=== PATIENT | male | born 1965 | race Two or more races ===

== ENCOUNTER 2018-03-28 17:33 | Inpatient (IN) | payer BC ==
[~2018-03-28] VITALS: Ht 165.1 cm; Wt 107.1 kg
[2018-03-28 22:55] VITALS: Ht 165.1 cm; Wt 107.1 kg
--- NOTE | 2018-03-28 22:55 | NUR ---
ADMITTED 52 YEARS OLD MALE FROM [facility] WITH C/O LEFT FACIAL VESICULAR RASH AROUND LEFT FOREHEAD , LEFT EYELID LEFT EYE ( SHINGLES ) UNDER DR Cedrick ANN . SKIN ASSESSMENT PER PROTOCOL . PATIENT ALERT AND ORIENTED X4 .V/S STABLE .ROUTINE ADMISSION CARE RENDERED .FALL PRECAUTION IN PLACE . CALL LIGHTS REMAIN WITHIN REACH. PLACED ON ISOLATION FOR AIRBORNE . CALLED DR. ANN AND MADE AWARE OF DIRECT ADMISSION . NEW ORDER RECEIVED AND CARRIED OUT . CONTINUE WITH PLAN OF CARE .WILL CONTINUE TO TO MONITOR .
[2018-03-28 23:53] VITALS: BP 137/95; PULSE 90; RESP 18
[2018-03-29] MEDS ORDERED: ONDANSETRON 4 MG TAB PO PRN (01:00)
[2018-03-29] MEDS ORDERED: CYANOCOBALAMIN 1000 MCG INJ IM SCH (01:00)
[2018-03-29] MEDS ORDERED: ACETAMINOPHEN 500 MG TAB PO PRN (01:00)
[2018-03-29] MEDS ORDERED: IBUPROFEN 600 MG TAB PO PRN (01:00)
[2018-03-29] MEDS ORDERED: traZODone 50 MG TAB PO PRN (01:00)
[2018-03-29] MEDS ORDERED: ARTIFICIAL TEARS 15 ML OPH BOTH EYES PRN (01:00)
[2018-03-29] MEDS: CEFAZOLIN 1 GM/50 ML (PMX) 50 ML IVPB SCH ×2 (01:52→11:43)
[2018-03-29] MEDS: SOD CHLORIDE 0.9% 1,000 ML IV SCH (01:52)
[2018-03-29 02:35] VITALS: BP 149/101; PULSE 83; RESP 18
[2018-03-29] MEDS: ACYCLOVIR 750 MG in SOD CHLORIDE 0.9% 150 ML IVPB SCH ×3 (02:54→17:54)
[2018-03-29 08:00] VITALS: BP 137/92; PULSE 93; RESP 19
[2018-03-29] MEDS: ENOXAPARIN 40 MG/0.4 ML SYG SC SCH (09:00)
[2018-03-29] MEDS: FOLIC ACID 1 MG TAB PO SCH (09:09)
[2018-03-29] MEDS: ERYTHROMYCIN 1 GM OPH OINT BOTH EYES SCH ×2 (09:10→21:00)
[2018-03-29] MEDS: AMLODIPINE 5 MG TAB PO SCH (09:11)
[2018-03-29] MEDS: LOSARTAN 50 MG TAB PO SCH (09:11)
[2018-03-29 14:05] VITALS: BP 130/89; PULSE 99; RESP 18
--- NOTE | 2018-03-29 14:18 | CONS ---
DATE OF ADMISSION: 03/28/2018 DATE OF CONSULTATION: 03/29/2018 TYPE OF CONSULTATION: Infectious disease. REASON FOR CONSULTATION: Antibiotic management. HISTORY OF PRESENT ILLNESS: Mr. Morris is a 52-year-old male with numerous problems, transferred f [facility] and is being seen for antibiotic management of herpes zoster. He is a 52-year-old male with HIV confirmed with Western Blot diagnosed a week ago. He developed pain in his left forehead on 03/24/2018. This progressed to some skin lesions and swelling of his left eye over the past 3 days. It is difficult for him to open his left eye. He has some photophobia without hea dache without change of vision in the left eye where his lids are held open without nausea, vomiting, fever or sweats. [place] came from [place]. He had chickenpox 40 years ago. He denies being v accinated for shingles. He does not know how he contracted HIV. Denies sexuality with males or IV d rug abuse. His has been tested and is negative. The patient was started on IV acyclovir and st arted on erythromycin ophthalmic ointment. PAST MEDICAL HISTORY: Operations as outlined. FAMILY HISTORY: Noncontributory. SOCIAL HISTORY: He does not smoke, drink or abuse drugs. ALLERGIES: NONE TO PENICILLIN, SULFA OR FOODS. MEDICATIONS: Per chart. REVIEW OF SYSTEMS: Noncontributory. PHYSICAL EXAMINATION: GENERAL: The patient is a well-developed, well-nourished male, awake, responsive, in no acute distre ss. VITAL SIGNS: Stable. HEENT: He has lesions in the vertical cluster on the left forehead with vesicle on left eyelid and some vesicles with peripheral yellow crusting. His left eye is edematous, erythematous. He has some drainage from the eye, but it does not appear to be purulent. ENT: Within normal limits. NECK: Supple. LYMPH NODES: None palpable. CHEST: Decreased breath sounds at the bases. HEART: Without murmur or gallop. ABDOMEN: Soft, nontender without organosplenomegaly or masses. EXTREMITIES: Without cyanosis, clubbing or edema. RECTAL AND GENITAL: Deferred. NEUROLOGIC: No focal neurological abnormality. IMPRESSION AND PLAN: We are dealing with a 52-year-old male newly diagnosed with human immunodeficie ncy virus who has dermatomal zoster involving the eye with left 6th dermatome without signs of promin ent involvement with diffuse swelling of the left eyelid and drainage. He has some new lesions on th e tip of the nose. The patient was started on IV acyclovir and also on antibiotics, cefazolin for po ssible bacterial superinfection. The patient was seen by infectious disease at [facility] and then t ransferred over to [facility] for insurance purposes. His white count was 3.7, H and H 15.5 and 45.7, platelet count of 58,000. BUN and creatinine was less than 5/0.79. He had hepatitis B an d C serologies drawn but they are not yet available. He has a history of B12 deficiency and has a hi story of hypertension on losartan and amlodipine. We will continue him on acyclovir and cefazolin. I will dictate my findings to I believe the hospitalist. Dictated By: ARYA CHING MD, JD/ИРИНА Conf#: [id number] DID#: [id number] CC: MORIAH ANN MD;*EndCC*
[2018-03-29] MEDS ORDERED: AZITHROMYCIN 600 MG TAB PO SCH (16:30)
--- NOTE | 2018-03-29 16:31 | QN ---
Documentation Comment SEEN AND EXAMINED NAVEED AGUILAR MD Mar 29, 2018 16:31
[2018-03-29] MEDS: TRIMETHOPRIM/SULFAMETHOX (DS) TAB PO SCH (17:53)
--- NOTE | 2018-03-29 18:14 | HP ---
DATE OF ADMISSION: 03/28/2018 REASON FOR ADMISSION: Transfer from [facility] secondary to shingles zoster ophthalmicus. HISTORY OF PRESENT ILLNESS: This is a 52-year-old male who was recently diagnosed with HIV by Becki navarrete a week ago and hypertension who presented to the [facility] on the due to a rash that appeared on the left eye for 1 day. According to the patient and the , the patient had not iced a rash on the left eye for the last 1 to 2 days. On arrival to [facility], the patient was noted to have diffuse erythematous vesicular rashes at the left V1 distribution. Ophthalmology was consulted. Per their note, there was no evidence of ARN, PORN, uveitis or scleritis. No gross s igns of keratitis. The patient was treated with IV acyclovir NS, also was started on IV cefazolin. Eye drainage was cultured for bacteria and also was started on erythromycin drops. The patient was a lso newly-diagnosed with HIV, viral load was pending. The patient was kept in isolation, was transfe rred here due to insurance reasons. Currently, the patient said that he is feeling a lot better. Th e swelling of the left eye is much improved. He could see from his left eye now. The lesions have i mproved. He came from around 8 years ago. He had chickenpox 40 years ago. He denies being vaccinat ed for shingles. He does not know how he contracted HIV. He denies sexuality with males or IV drug abuse. On arrival to ED here, vital signs showed blood pressure 130/89, afebrile, pulse 99, respirat ions 19. White count 5.2, hemoglobin 15.7, platelet count was 72. PAST MEDICAL HISTORY: 1. Recently-diagnosed HIV. 2. Hypertension. ALLERGIES: NO ALLERGIES TO PENICILLIN OR SULFA DRUGS. SOCIAL HISTORY: Denies any history of smoking or alcohol. 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 Apparently, he feels that he got HIV through a needle. FAMILY HISTORY: Noncontributory. REVIEW OF SYSTEMS: The patient complained of pain around the left eye which has much improved. Claudio es any chest pain, any shortness of breath, any headache, any blurry vision. Denies any abdominal pa in, nausea, vomiting, diarrhea. Denies any hematemesis, any melena, any bright red blood per rectum. MEDICATIONS: Taking at home are losartan 100. The patient also had a left ear TM perforation 30 yea rs ago. PHYSICAL EXAMINATION: GENERAL: Well-developed, well-nourished male who appears in no acute distress. HEENT: Lesion in the vertical cluster on the left forehead, vesicle on the left eyelid, some vesicle s with some crusting. NECK: Supple. No JVD. HEART: Regular rate and rhythm. LUNGS: Clear to auscultation bilaterally. ABDOMEN: Soft, nontender, nondistended. EXTREMITIES: No clubbing, cyanosis, or edema. NEUROLOGIC: Nonfocal. DIAGNOSTIC DATA: He had significant thrombocytopenia, platelet count of 72. ASSESSMENT AND PLAN: This is a 52-year-old male who presented with: 1. Shingles zoster ophthalmicus. The patient has an extensive workup at [facility]. Ophth almology was consulted. Per their note, no evidence of ARN, PORN, uveitis or scleritis, currently on acyclovir and also on IV Ancef, artificial tears and erythromycin ointment. 2. Human immunodeficiency virus, newly diagnosed. The patient unaware of how he contracted HIV. Th e patient and do not want other family members including sons to know pending CD4 and viral load . 3. Thrombocytopenia. It could be secondary to human immunodeficiency virus infection. Would evalua te for other causes. 4. History of folate deficiency. 5. B12 deficiency. 6. Hypertension. PLAN: At this period of time, the patient is admitted to Med/Surg. We will continue the patient on IV acyclovir and cefazolin. We will get the CD4 count and viral load from [facility]. The patient will likely need HAART therapy. ID has been consulted. Rest of the treatment will depend on the patient's hospitalization course. Dictated By: NAVEED JAING/ИРИНА Conf#: [id number] DID#: [id number] CC: MORIAH ANN MD;*EndCC*
--- NOTE | 2018-03-29 18:34 | NUR ---
EOSS: Pt vitals stable throughout shift. Pt reported desire to be discharged. Dr. Resendiz stated patient is pending discharge tomorrow if CD4 and viral load are sent to [facility] from [facility]. Consent for exchange of personal information signed by patient and sent to [facility]. Patient is also waiting for case management consult to see if new HIV medication will be covered by insurance, prior to clearance for D/C. Patient was made aware of the reason for delay in discharge. Pt reports that rash on face is improved from days prior. IV abx switched to oral during shift. Pt denies pain or nausea. Patient ambulates without assistance to bathroom. is at bedside. Pt requests that ONLY is to be allowed to receive information regarding health care. Other family members are not allowed to receive any information regarding personal health information. Pt denies having further needs at this time. Call light within reach.
[2018-03-29 19:40] VITALS: BP 130/84; PULSE 116; RESP 18
[2018-03-30] MEDS: SOD CHLORIDE 0.9% 1,000 ML IV SCH ×2 (01:00→09:46)
[2018-03-30 02:47] VITALS: BP 134/90; PULSE 77; RESP 20
[2018-03-30] MEDS: ACYCLOVIR 750 MG in SOD CHLORIDE 0.9% 150 ML IVPB SCH ×2 (03:29→11:11)
--- NOTE | 2018-03-30 05:20 | NUR ---
End of Shift RN Note: Pt alert and oriented x4. No signs of acute distress noted. Pt denied pain through the night. Refused ophthalmic medication, stating he would take it in the AM. Pt vitals remained at baseline through the night. Pt showered. Airborne precautions continued. Will continue to monitor.
[2018-03-30 07:15] VITALS: BP 134/92; PULSE 77; RESP 16
[2018-03-30] MEDS: LOSARTAN 50 MG TAB PO SCH (08:18)
[2018-03-30] MEDS: TRIMETHOPRIM/SULFAMETHOX (DS) TAB PO SCH (08:18)
[2018-03-30] MEDS: ERYTHROMYCIN 1 GM OPH OINT BOTH EYES SCH (08:18)
[2018-03-30] MEDS: AMLODIPINE 5 MG TAB PO SCH (08:18)
[2018-03-30] MEDS: FOLIC ACID 1 MG TAB PO SCH (08:18)
[2018-03-30] MEDS: ENOXAPARIN 40 MG/0.4 ML SYG SC SCH (09:00)
[2018-03-30] MEDS ORDERED: FLUCONAZOLE 200 MG TAB PO SCH (09:00)
--- NOTE | 2018-03-30 10:30 | NUR ---
SS Note: Consult The patient is a 52-year-old male who was recently diagnosed with HIV and hypertension admitted due to facial shingles. SW met with pt and his spouse, Casandra Street , to provide support, complete psychosocial assessment, and link pt to appropriate resources as needed. Pt provided consent for spouse to present during visit. Pt is and has two sons ages 21 and 13. Pt verbally appointed his spouse as surrogate decision maker/spokesperson. Pt confirmed address on facesheet and stated he lives with his family. 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 Pt is independent with all ADL's and does not require DME. Pt has [facility] insurance and PCP is Zoila Loco at [facility]. Pt stated he was dx with HIV approximately 2 weeks ago. Spouse is the only person who knows and does not want his children to find out. Per pt, he was dx by PCP and has appointment with Infectious Specialist on 04/23/18. Pt not on any HIV meds at this time. SW introduced self and the role of the group social worker. SW provided support and reassurance. SW provided HIV E-sheets for additional education. SW also discussed and provided HIV/AIDS and counseling resources. SW remains available for f/u as needed.
--- NOTE | 2018-03-30 11:32 | PN ---
Date/Time of Note Date/Time of Note DATE: 03/30/18 TIME: 11:32 Assessment/Plan VTE Prophylaxis Risk score (from Ns)>0 risk: 2 SCD applied (from [facility]): No SCD contraindicated: other Pharmacological prophylaxis: NA/contraindicated Pharm contraindication: thrombocytopenia Lines/Catheters IV Catheter Type (from [facility]): Peripheral IV Assessment/Plan Hospital Course 1. Shingles zoster ophthalmicus. The patient has an extensive workup at [facility]. Ophthalmology was consulted. Per their note, no evidence of ARN, PORN, uveitis or scleritis, currently on acyclovir and also on IV Ancef, artificial tears and erythromycin ointment. 2. Human immunodeficiency virus, newly diagnosed. The patient unaware of how he contracted HIV. The patient and do not want other family members including sons to know pending CD4 and viral load. 3. Thrombocytopenia. It could be secondary to human immunodeficiency virus infection. Would evaluate for other causes. 4. History of folate deficiency. 5. B12 deficiency. 6. Hypertension. 7. Anxiety Assessment/Plan -admitted to Med/Surg. - continue the patient on IV acyclovir and cefazolin. -CD4 count 454 and viral load from [facility] copied. -start HAART therapy per ID -anxiolytics -d/c lovenox. Result Diagram: 03/29/18 0536 03/29/18 0536 Subjective 24 Hr Interval Summary Skin: erythema, pruritis Psychological: anxiety Exam/Review of Systems Vital Signs Vitals Vital Signs Date Temp Pulse Resp B/P (MAP) Pulse Ox O2 O2 Flow FiO2 Time Delivery Rate 03/30/18 98.4 77 16 134/92 97 Room Air 07:15 (106) Intake and Output 03/29/18 03/29/18 03/30/18 1515:00 23:00 07:00 IntakeIntake Total 50 ml 1200 ml 550 ml BalanceBalance 50 ml 1200 ml 550 ml Exam Constitutional: alert, oriented Eyes: other (left eye swollen, rash on face) Cardiovascular: regular rate and rhythm Gastrointestinal: soft Medications Medications Current Medications Sodium Chloride 1,000 ml @ 40 mls/hr Q24H IV Last administered on 03/30/18at 09:46; Admin Dose 40 MLS/HR; Start 03/29/18 at 01:00 Acyclovir 750 mg/ Sodium Chloride 150 ml @ 150 mls/hr Q8H IVPB Last adm inistered on 03/30/18at 11:11; Admin Dose 150 MLS/HR; Start 03/29/18 at 03:00 Amlodipine Besylate (Norvasc) 5 mg DAILY PO Last administered on 03/30/18at 08:18; Admin Dose 5 MG; Start 03/29/18 at 09:00 Eye Lubricant (Artificial Tears Oph) 1 drop QID PRN BOTH EYES DRY EYES; Start 03/29/18 at 01:00 Enoxaparin Sodium (Lovenox) 40 mg DAILY SC ; Start 03/29/18 at 09:00 Erythromycin (Erythromycin Oph Oint) 1 applic BID BOTH EYES Last administered on 03/30/18at 08:18; Admin Dose 1 APPLIC; Start 03/29/18 at 09:00 Folic Acid (Folic Acid) 1 mg DAILY PO Last administered on 03/30/18at 08:18; Admin Dose 1 MG; Start 03/29/18 at 09:00 Hydralazine HCl (Apresoline) 10 mg Q6H PRN PO ELEVATED BLOOD PRESSURE; Start 03/29/18 at 01:00 Ibuprofen (Motrin) 600 mg Q6H PRN PO MILD PAIN LEVEL 1-3; Start 03/29/18 at 01:00 Losartan Potassium (Cozaar) 100 mg DAILY PO Last administered on 03/30/18at 08: 18; Admin Dose 100 MG; Start 03/29/18 at 09:00 Trazodone HCl (Desyrel) 50 mg HS PRN PO INSOMNIA; Start 03/29/18 at 01:00 Acetaminophen (Tylenol Tab) 500 mg Q6H PRN PO MILD PAIN(1-3)OR ELEVATED TEMP; Start 03/29/18 at 01:00 Ondansetron HCl (Zofran Tab) 4 mg TID PRN PO NAUSEA AND/OR VOMITING; Start 03/29/18 at 01:00 Cyanocobalamin (Vitamin B12 Inj) 1,000 mcg Tu@0900 IM ; Start 04/03/18 at 09:00 Trimethoprim/ Sulfamethoxazole (Bactrim (Ds)) 1 tab DAILY PO Last administered on 03/30/18at 08:18; Admin Dose 1 TAB; Start 03/29/18 at 16:30 Azithromycin (Zithromax) 1,200 mg Q7D PO Last administered on 03/29/18at 17:54; Admin Dose 1,200 MG; Start 03/29/18 at 16:30 Fluconazole (Diflucan) 200 mg DAILY PO Last administered on 03/30/18at 08:18; Admin Dose 200 MG; Start 03/30/18 at 09:00 MARIN BOLAÑOS Mar 30, 2018 11:32
[2018-03-30] MEDS ORDERED: LORAZEPAM 4 MG/ML VIAL IV PRN (12:30)
[2018-03-30] MEDS ORDERED: ALPRAZOLAM 0.25 MG TAB PO PRN (12:30)
[2018-03-30 14:00] VITALS: BP 122/86; PULSE 79; RESP 16
--- NOTE | 2018-03-30 14:16 | NUR ---
Patient verbalized frustration and wanting to go home. at bedside, wants also to take patient home. She said 1 more night and "he'll be crazy". Patient felt like he's a prisoner. Patient is on isolation. Spoke to Mariela MCDONALD regarding this matter. Stated she explained to both patient and his condition. Awaiting for ID to talk to patient. Provide emotional support.
--- NOTE | 2018-03-30 14:43 | CONS ---
Date/Time of Note Date/Time of Note DATE: 03/30/18 TIME: 14:42 Assessment/Plan Assessment/Plan Hospital Course No acute changes overnight patient is awake looks comfortable no fevers no labs this morning his BUN yesterday was 7 creatinine 0.88 antimicrobials patient is on Bactrim Zithromax acyclovir IV. Physical examination this is well-developed well-nourished middle-aged [place]iny[place] man who is alert in no distress head atraumatic normocephalic neck is supple chest rise symmetrical breath sounds clear heart S1-S2 abdomen soft bowel sounds present extremities without cyanosis skin patient has herpetic lesion on his left face which is a vertical cluster of the left forehead was dry at lesion on the left eyelid Assessment: 1. Newly diagnosed HIV with CD4 count of 454 per documents from [facility] 2. Left facial herpes zoster, no eye involvement as patient was evaluated by check processing clerk at another facility Plan: Patient is clinically stable and wants to go home, ok discharge on oral Valtrex or acyclovir for 7-10 more days, continue eye gtts, we will give him a prescription for Genvoya, however the patient already has appointment with HIV clinic next week. DW pt/ at bedside Result Diagram: 03/29/18 0536 03/29/18 0536 Consultation Date/Type/Reason Admit Date/Time Mar 28, 2018 at 22:57 Initial Consult Date Type of Consult id Exam/Review of Systems Vital Signs Vitals Vital Signs Date Temp Pulse Resp B/P (MAP) Pulse Ox O2 O2 Flow FiO2 Time Delivery Rate 03/30/18 98.1 79 16 122/86 99 Room Air 14:00 (98) Intake and Output 03/29/18 03/29/18 03/30/18 1515:00 23:00 07:00 IntakeIntake Total 50 ml 1200 ml 550 ml BalanceBalance 50 ml 1200 ml 550 ml Medications Medications Current Medications Sodium Chloride 1,000 ml @ 40 mls/hr Q24H IV Last administered on 03/30/18at 09:46; Admin Dose 40 MLS/HR; Start 03/29/18 at 01:00 Acyclovir 750 mg/ Sodium Chloride 150 ml @ 150 mls/hr Q8H IVPB Last administered on 03/30/18at 11:11; Admin Dose 150 MLS/HR; Start 03/29/18 at 03:00 Amlodipine Besylate (Norvasc) 5 mg DAILY PO Last administered on 03/30/18at 08: 18; Admin Dose 5 MG; Start 03/29/18 at 09:00 Eye Lubricant (Artificial Tears Oph) 1 drop QID PRN BOTH EYES DRY EYES; Start 03/29/18 at 01:00 Erythromycin (Erythromycin Oph Oint) 1 applic BID BOTH EYES Last administered on 03/30/18at 08:18; Admin Dose 1 APPLIC; Start 03/29/18 at 09:00 Folic Acid (Folic Acid) 1 mg DAILY PO Last administered on 03/30/18at 08:18; Admin Dose 1 MG; Start 03/29/18 at 09:00 Hydralazine HCl (Apresoline) 10 mg Q6H PRN PO ELEVATED BLOOD PRESSURE; Start 03/29/18 at 01:00 Ibuprofen (Motrin) 600 mg Q6H PRN PO MILD PAIN LEVEL 1-3; Start 03/29/18 at 01:00 Losartan Potassium (Cozaar) 100 mg DAILY PO Last administered on 03/30/18at 08:18; Admin Dose 100 MG; Start 03/29/18 at 09:00 Trazodone HCl (Desyrel) 50 mg HS PRN PO INSOMNIA; Start 03/29/18 at 01:00 Acetaminophen (Tylenol Tab) 500 mg Q6H PRN PO MILD PAIN(1-3)OR ELEVATED TEMP; Start 03/29/18 at 01:00 Ondansetron HCl (Zofran Tab) 4 mg TID PRN PO NAUSEA AND/OR VOMITING; Start 03/29/18 at 01:00 Cyanocobalamin (Vitamin B12 Inj) 1,000 mcg Tu@0900 IM ; Start 04/03/18 at 09:00 Trimethoprim/ Sulfamethoxazole (Bactrim (Ds)) 1 tab DAILY PO Last administered on 03/30/18at 08:18; Admin Dose 1 TAB; Start 03/29/18 at 16:30 Azithromycin (Zithromax) 1,200 mg Q7D PO Last administered on 03/29/18at 17:54; Admin Dose 1,200 MG; Start 03/29/18 at 16:30 Fluconazole (Diflucan) 200 mg DAILY PO Last administered on 03/30/18at 08:18; Admin Dose 200 MG; Start 03/30/18 at 09:00 Alprazolam (Xanax) 0.25 mg Q6H PRN PO ANXIETY Last administered on 03/30/18at 14:24; Admin Dose 0.25 MG; Start 03/30/18 at 12:30 Lorazepam (Ativan) 0.5 mg Q6H PRN IV ANXIETY; Start 03/30/18 at 12:30 MELISSA MORGAN NP Mar 30, 2018 14:43
--- NOTE | 2018-03-30 14:54 | PDOCDIS ---
Discharge Instructions DIAGNOSIS Discharge Diagnosis ophthalmic Herpes Zoster CONDITION [id number] Patient Condition: [id number] Stable - a/b per ID specialist HOME CARE INSTRUCTIONS: [id number] Special Diet: [id number] Regular ACTIVITY: [id number] Activity Restrictions: [id number] Slowly Increase Activity Rest between Activity Avoid heavy lifting FOLLOW UP/APPOINTMENTS Follow-up Plan PCP 1 week ID 1 week SCHOOL/WORK RELEASE May return to School/Work with: With Restrictions MARIN BOLAÑOS Mar 30, 2018 14:54
--- NOTE | 2018-03-30 14:55 | DS ---
Date/Time of Note Date/Time of Note DATE: 03/30/18 TIME: 14:55 Discharge Summary Admission/Discharge Info Admit Date/Time Mar 28, 2018 at 22:57 Discharge Date/Time Discharge Diagnosis ophthalmic Herpes Zoster Patient Condition: Stable Consults ID consult dr Castro Hospital Course This is a 52-year-old male who was recently diagnosed with HIV by Western blot a week ago and hypertension who presented to the [facility] on the due to a rash that appeared on the left eye for 1 day. According to the patient and the , the patient had noticed a rash on the left eye for the last 1 to 2 days. On arrival to [facility], the patient was noted to have diffuse erythematous vesicular rashes at the left V1 distribution. Ophthalmology was consulted. Per their note, there was no evidence of ARN, PORN, uveitis or scleritis. No gross signs of keratitis. The patient was treated with IV acyclovir NS, also was started on IV cefazolin. Eye drainage was cultured for bacteria and also was started on erythromycin drops. The patient was also newly-diagnosed with HIV, viral load was pending. The patient was kept in isolation, was transferred here due to insurance reasons. Currently, the patient said that he is feeling a lot better. The swelling of the left eye is much improved. He could see from his left eye now. The lesions have improved. He came from around 8 years ago. He had chickenpox 40 years ago. He denies being vaccinated for shingles. He does not know how he contracted HIV. He denies sexuality with males or IV drug abuse. On arrival to ED here, vital si gns showed blood pressure 130/89, afebrile, pulse 99, respirations 19. White count 5.2, hemoglobin 15.7, platelet count was 72. 1. Shingles zoster ophthalmicus. The patient has an extensive workup at [facility]. Ophthalmology was consulted. Per their note, no evidence of ARN, PORN, uveitis or scleritis, currently on acyclovir and also on IV Ancef, artificial tears and erythromycin ointment. 2. Human immunodeficiency virus, newly diagnosed. The patient unaware of how he contracted HIV. The patient and do not want other family members including sons to know pending CD4 and viral load. 3. Thrombocytopenia. It could be secondary to human immunodeficiency virus infection. Would evaluate for other causes. 4. History of folate deficiency. 5. B12 deficiency. 6. Hypertension. 7. Anxiety During hospitalization pt was in airborne isolation in Med/Surg. unit. Pt was continued on IV acyclovir and cefazolin. CD4 count 454 and viral load from [facility] was available from pt record and ID specialist, dr Castro PRACTICE NURSE cleared pt for d/c with starting of antiHIV medication. Home Meds No Active Prescriptions or Reported Meds Follow-up Plan PCP 1 week ID 1 week Primary Care Provider Care Physician No Primary Time spent on discharge: < 30 minutes MARIN BOLAÑOS Mar 30, 2018 14:55
--- NOTE | 2018-03-30 17:38 | NUR ---
Patient with stable vitals throughout shift. Cleared by ID for D/C. Gave patient prescriptions and educated on how to take and potential side effects to look out for. Educated on proper hygiene and isolation techniques to prevent spread of shingles. Patient and spouse verbalized understanding and denied having further questions. Pt did not want RN to inventory belongings but stated nothing is missing. IV removed with tip intact. No prolonged bleeding. Leaving unit with at side ini wheelchair
[2018-04-03] MEDS ORDERED: CYANOCOBALAMIN 1000 MCG INJ IM SCH (09:00)
== END 2018-03-30 17:27 | disposition home or self-care (01) | DRG 125 ==
LOC: PP2 22:57
PROVIDERS: ADMIT Internal Medicine Nephrology; ATTEND Internal Medicine Nephrology
DX: B02.30 Zoster ocular disease, unspecified (principal); I10 Essential (primary) hypertension; F41.9 Anxiety disorder, unspecified; E53.8 Deficiency of other specified B group vitamins; D69.6 Thrombocytopenia, unspecified
CPT/HCPCS: 80048; 85025; J0133; J0690; J1650; J3420; J7030